=== PATIENT | male | born 1970 | race Caucasian/White ===

== ENCOUNTER 2018-08-28 15:52 | Observation (INO) ==
[~2018-08-28 15:52] MED LIST: ATIVAN IV ONE; ATIVAN ONE; KEPPRA 1,000 MG in NS 100 ML IV ONE
[2018-08-28 16:31] LABS: BILIRUBIN URINE NEGATIVE (NEGATIVE); BLOOD URINE 3+ (NEGATIVE); CLARITY CLEAR (CLEAR); COLOR YELLOW; GLUCOSE URINE NEGATIVE (NEGATIVE); KETONE URINE TRACE mg/dL (NEGATIVE); LEUKOCYTES URINE NEGATIVE (NEGATIVE); NITRITE URINE NEGATIVE (NEGATIVE); PROTEIN URINE NEGATIVE (NEGATIVE); SP GRAVITY URINE 1.015; UROBILINOGEN URINE NORMAL
--- NOTE | 2018-08-28 16:44 | Diag Imaging Result Doc PS360 ---
EXAM: CT HEAD W/O CONTRAST 08/28/2018 HISTORY: seizures TECHNIQUE: This exam was performed using automated exposure control, adjustment of mA or kV according to patient size, and/or use of iterative reconstruction technique. COMMENT: There has been previous left temporal craniotomy. There is considerable encephalomalacia in the left frontal and temporal lobe. There is an apparent aneurysm clip lateral to the sella on the left. Compared to the previous examination of 03/30/2018 there is somewhat less extensive encephalomalacia in the posterior parietal lobe on the left. There is a shunt catheter in the posterior frontal bone on the right extending into the area of the foramen of Olga. There is no increase in the degree of hydrocephalus to indicate shunt malfunction. There is no evidence of intracranial bleed. There is some motion artifact. The visualized paranasal sinuses are clear. IMPRESSION: Postsurgical changes. No evidence of acute disease. Electronically signed by Valentin Vu 08/28/2018 4:41 PM
[2018-08-28 16:53] LABS: HEMATOCRIT 45.1 % (42.0-52.0); RBC 4.92 XMIL (4.7-6.1); WBC 11.56 X1000 (4.8-10.8)
[2018-08-28 16:54] LABS: BASO# 0.05 X1000 (0.0-0.2); BASO% 0.4 % (0.0-0.8); EOS% 1.7 % (0.0-10.0); IMM GRAN# 0.03 X1000 (0.0-0.04); IMM GRAN% 0.3 % (0.0-0.5); LYMPH# 3.58 X1000 (1.2-3.4); MCH 30.5 PG (27-31); MCHC 33.3 g/dL (33-37); MCV 91.7 FL (81-99); MONO# 0.72 X1000 (0.11-0.59); MONO% 6.2 % (1.7-9.3); MPV 10.3 FL (7.4-10.4); NEUT# 6.98 X1000 (1.4-6.5); NEUT% 60.4 % (42.2-75.2); PLT 323 X1000 (130-400)
[2018-08-28 16:59] LABS: URINE BACTERIA NEGATIVE /HFP; URINE EPITHELIAL CELLS <10 /HPF (<10); URINE RBC TNTC /HPF (<10); URINE SOURCE CLEAN CATCH; URINE WBC <10 /HPF (<10)
[2018-08-28 17:31] LABS: AGAP 23; ALBUMIN 4.7 g/dL (3.5-5.0); ALKALINE PHOSPHATASE 68 U/L (32-122); BUN 11 mg/dL (8-22); CALCIUM 9.3 mg/dL (8.8-10.2); CHLORIDE 99 mmol/L (98-107); COSMO 275; CREATININE 0.9 mg/dL (0.7-1.2); ESTIMATED GFR > 60; GLUCOSE 95 mg/dL (70-104); GOT 23 U/L (10-34); GPT 42 U/L (10-44); POTASSIUM 4.8 mmol/L (3.5-5.1); SODIUM 138 mmol/L (136-145); TCO2 16 mmol/L (25-35); TOTAL PROTEIN 7.5 g/dL (6.3-8.3)
--- NOTE | 2018-08-28 17:40 | EKG Report ---
Test Performed on : 08/28/2018 4:23:09 PM Test Reason : seizure Blood Pressure : / mmHG Vent. Rate : 120 BPM Atrial Rate : 120 BPM P-R Int : 176 ms QRS Dur : 090 ms QT Int : 308 ms P-R-T Axes : 054 051 028 degrees QTc Int : 435 ms Sinus tachycardia. Cannot rule out Anterior infarct , age undetermined Abnormal ECG When compared with ECG of 30-MAR-2018 23:45, No significant change was found Unconfirmed Result
--- NOTE | 2018-08-28 17:45 | PROVIDER DOCUMENTATION ---
This chart was entered by Magui Khoury Scribe, acting as scribe for Cody Umaña MD. HPI-Neurological Disorder - General Chief Complaint: Seizure Stated Complaint: Seizure Time Seen by Provider: 08/28/18 15:36 Source: family, EMS Unable to obtain history due to:: altered Allergies/Adverse Reactions: Patient Allergies Allergy/AdvReac Type Severity Reaction Status Date / Time No Known Allergies Allergy Verified 08/28/18 16:28 Home Medications: Home Medication List Medication Instructions Recorded Confirmed Last Taken Type Allopurinol [Zyloprim] 1 tab PO DAILY 03/30/18 03/30/18 03/30/18 History Aspirin 1 tab PO DAILY 03/30/18 03/30/18 03/30/18 History Calcium Carb/D3/Magnesium/Zinc 1 tab PO DAILY 03/30/18 03/30/18 03/30/18 History [Eric Mag Zinc-D Tablet] Fluoxetine HCl 2 cap PO DAILY 03/30/18 03/30/18 03/30/18 History Hydrochlorothiazide 1 tab PO DAILY 03/30/18 03/30/18 03/30/18 History Lansoprazole 1 tab PO Q48H 03/30/18 03/30/18 Unknown History Losartan Potassium 1 tab PO DAILY 03/30/18 03/30/18 03/30/18 History Trazodone HCl 1 tab PO DAILY 03/30/18 03/30/18 03/30/18 History Lacosamide [Vimpat] 100 mg PO BID #60 tab 04/02/18 Unknown Rx Patient's Own Med 1 each PO QAM misc 04/02/18 Unknown Rx Patient's Own Med 2 each PO QPM [facility] 04/02/18 Unknown Rx Potassium Citrate E.r. [Urocit-K] 30 meq PO DAILY tablet 04/02/18 Unknown Rx - History of Present Illness-Neuro Nature of Presenting Problem: 47 y/o male presents to ED with seizures onset approximately 1 hour prior to arrival. EMS reports they gave 2 of versed en route to ED. Mother of pt is present at bedside and states he has epilepsy. Mother reports he has seized like this before and had to be given a combination of kepra and ativan. Pt is actively seizing in room. Severity: reports: moderate Onset/Duration: reports: 1 hour ago Timing: reports: still present Context: reports: seizure activity Character of Altered Mental Status: reports: seizure activity Any recent trauma/injury?: reports: none New weakness or altered sensation location:: reports: none Cognitive Baseline: other (actively seizing) Gait Baseline: walks without assistance Associated Symptoms: reports: seizures, other (incontinent of urine) Similar Symptoms Previously?: Yes Recently seen or treated by another doctor?: No - Seizure First time to have a seizure?: No Witnessed seizure?: Yes (mother ) Approximate time seizures began?: 14:42 Episode Frequency: frequent episodes (epileptic) Status Epilepticus: Yes Preceding symptoms/context:: none Character of Seizure: reports: generalized shaking all over, incontinent of urine Post-ictal Symptoms: reports: confusion Seizure related injury: none Review of Systems - Adult - REVIEW OF SYSTEMS - ADULT ROS:: unobtainable per condition (active seizing) Constitutional: reports: no symptoms reported, see HPI Eyes: reports: no symptoms reported, see HPI Ears, Nose, Mouth & Throat: reports: no symptoms reported, see HPI Cardiovascular: reports: no symptoms reported, see HPI Respiratory: reports: no symptoms reported, see HPI Gastrointestinal: reports: no symptoms reported, see HPI Genitourinary: reports: no symptoms reported, see HPI Musculoskeletal: reports: no symptoms reported, see HPI Integumentary: reports: no symptoms reported, see HPI Neurological: reports: see HPI, seizure Psychiatric: reports: no symptoms reported, see HPI Endocrine: reports: no symptoms reported, see HPI Hematologic/Lymphatic: reports: no symptoms reported, see HPI Allergic/Immunologic: reports: no symptoms reported, see HPI All Other Systems: Reviewed and Negative Past History - Adult - PAST MEDICAL HISTORY-ADULT Review of Records: reports: Old Records Reviewed, Nursing Assessment Review, Medications Reviewed, Social history reviewed & non-contributory. Major Childhood Illnesses: reports: denies history Cardiovascular: reports: denies history Respiratory: reports: denies history Gastrointestinal: reports: denies history Obstetrical/Gynecological: reports: denies history Genitourinary: reports: denies history Musculoskeletal: reports: denies history Neurological: reports: cancer/tumor (brain tumor), CVA, Seizures/Epilepsy, other (aneurysm) Endocrine/Immune: reports: denies history Other Conditions: reports: denies history - PRIOR SURGERIES/PROCEDURES Surgical/Procedure History: reports: reviewed, not pertinent, other (aneurysm; eye sx) - IMMUNIZATION STATUS Childhood Immunizations: See Nurse Assessment Flu Vaccine: See Nurse Assessment - FAMILY HISTORY Family History: reviewed, not pertinent - SOCIAL HISTORY Smoking: non-smoker Substance Use: none/never Alcohol Use Frequency: never Living Situation: family Physical Exam- Neurological - Physical Exam-Neuro Initial Vital Signs Reviewed: Yes General Appearance: other (actively seizing) Head Injury: no evidence of injury Respiratory: chest non-tender, lungs clear, normal breath sounds Cardiovascular: normal peripheral pulses, regular rate, rhythm, no edema, no gallop, no JVD, no murmur, tachycardia Abdominal Exam: normal bowel sounds, non tender, soft 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 Exam: other (actively seizing) Coordination/Gait: other (actively seizing) Motor/Sensory: other (actively seizing) Neurologic: other (actively seizing) Integumentary: normal color, warm/dry Psych/Mental Status: other (actively seizing) Progress - PLAN OF CARE/RESULTS Progress/Plan/Lab Results: Vital Signs - 8 hr 08/28/18 15:31 08/28/18 15:49 08/28/18 16:00 Pulse Rate 145 H 148 H 127 H Respiratory Rate 40 H 44 H 30 H Blood Pressure 161/93 162/93 144/89 O2 Sat by Pulse Oximetry 93 L 99 98 08/28/18 16:13 Pulse Rate 123 H Respiratory Rate 29 H Blood Pressure 149/92 O2 Sat by Pulse Oximetry 99 Laboratory Results - last 24 hr 08/28/18 08/28/18 08/28/18 15:15 15:15 15:15 WBC 11.56 H RBC 4.92 Hgb 15.0 Hct 45.1 MCV 91.7 MCH 30.5 MCHC 33.3 RDW Std Deviation 13.0 Plt Count 323 MPV 10.3 Immature Gran % (Auto) 0.3 Neut % (Auto) 60.4 Lymph % (Auto) 31.0 Swain % (Auto) 6.2 Eos % (Auto) 1.7 Baso % (Auto) 0.4 Immature Gran # (Auto) 0.03 Neut # (Auto) 6.98 H Lymph # (Auto) 3.58 H Swain # (Auto) 0.72 H Eos # (Auto) 0.20 Baso # (Auto) 0.05 Sodium 138 Potassium 4.8 Chloride 99 Carbon Dioxide 16 L Anion Gap 23 BUN 11 Creatinine 0.9 Estimated GFR/1.73 m2 > 60 BUN/Creatinine Ratio 12 Glucose 95 Calculated Osmolality 275 Calcium 9.3 Total Bilirubin 0.20 AST 23 ALT 42 Alkaline Phosphatase 68 Total Protein 7.5 Albumin 4.7 Globulin 3.0 Albumin/Globulin Ratio 2.0 Urine Source CLEAN CATCH Urine Color YELLOW Urine Clarity CLEAR Urine pH 5.0 Ur Specific [place] 1.015 Urine Protein NEGATIVE Urine Ketones TRACE Urine Blood 3+ A Urine Nitrite NEGATIVE Urine Bilirubin NEGATIVE Urine Urobilinogen NORMAL Urine Microscopic RBC TNTC A Urine WBC NEGATIVE Urine Microscopic WBC <10 Ur Epithelial Cells <10 Urine Bacteria NEGATIVE Urine Glucose NEGATIVE Orders Category Date Time Status Cardiac Monitoring DIRECTED Care 08/28/18 15:34 Active FSBS [Finger Stick Blood Sugar (ED)] DIRECTED Care 08/28/18 16:13 Active Calhoun Cath Insertion ORDERED Care 08/28/18 15:50 Active Nursing- Obtain EKG ONCE Care 08/28/18 16:13 Active Oxygen Therapy- ED Nursing DIRECTED Care 08/28/18 15:34 Active Saline Loc NOW Care 08/28/18 15:[address] HEAD W/O CONTRAST [CT] Stat Exams 08/28/18 16:13 Completed CBC WITH ELECTRONIC DIFF [HEME] Stat Lab 08/28/18 15:15 Completed COMPREHENSIVE METABOLIC PANEL [CHEM] Stat Lab 08/28/18 15:[address] W/POSS RFLX CULT [URINALYSIS] Stat Lab 08/28/18 15:15 Completed Levetiracetam [Keppra] 1,000 mg Med 08/28/18 15:41 Discontinued 0.9% Sodium Chloride Inj [Ns] 100 ml IV NOW Lorazepam [Ativan] Med 08/28/18 15:45 Discontinued 1 mg IV NOW ONE Lorazepam [Ativan] Med 08/28/18 15:33 Discontinued 2 mg IV NOW ONE EKG [EKG] Stat Ther 08/28/18 16:13 Draft Result Diagrams: 08/28/18 15:15 08/28/18 15:15 - REASSESSMENT Reassessment #1 Time Reassessed: 16:17 Status: improving (Pt seizures have subsided and he is now alert and talking.) - EKG 1 Time of EKG reading by physician:: 16:23 EKG Read and Signed by:: Cody Umaña EKG Interpretation (*Must complete 3 of following elements*): Abnormal Rate: 120 Rhythm: Sinus tach [place]: normal QRS: other (cannot rule out anterior infarct) MT Interval: normal ST Wave: normal - CT/MRI 1 CT Study: Head Impression: See EMR Report ([facility] [address], [address], [place] [address] Department of Imaging Patient: RANDELL LIMAADM Date: 08/28/18#: [id number] : 1970ADM Status: PRE ERAcct#: [id number] Age/Sex: 47/MRoom/Bed: Loc: P.ED Ordering Physician: Cody Umaña MD Family Physician: Reason for Procedure: seizures Signed EXAM: CT HEAD W/O CONTRAST 08/28/2018 HISTORY: seizures TECHNIQUE: This exam was performed using automated exposure control, adjustment of mA or kV according to patient size, and/or use of iterative reconstruction technique. COMMENT: There has been previous left temporal craniotomy. There is considerable encephalomalacia in the left frontal and temporal lobe. There is an apparent aneurysm clip lateral to the sella on the left. Compared to the previous examination of 03/30/2018 there is somewhat less extensive encephalomalacia in the posterior parietal lobe on the left. There is a shunt catheter in the poste rior frontal bone on the right extending into the area of the foramen of Olga. There is no increase in the degree of hydrocephalus to indicate shunt malfunction. There is no evidence of intracranial bleed. There is some motion artifact. The visualized paranasal sinuses are clear. IMPRESSION: Postsurgical changes. No evidence of acute disease. Electronically signed by Valentin Vu 08/28/2018 4:41 PM 08/28/18 1641 Interpreting Physician: Valentin Vu MD Dictated Date/Time: 08/28/18 1907 cc: Cody Umaña MD;) - CONSULTS/PCP/HOSPITALIST Notification #1 *Consult/PCP/Hospitalist*: Dr. Avilez Time Discussed: 17:37 Reason/Comments: Seizures Consult Disposition: Will see in ED, Admit Departure - Departure Date of Disposition Decision: 08/28/18 Time of Disposition Decision: 17:37 DIAGNOSIS: Seizure disorder, grand mal Disposition: ADMITTED INPATIENT 09 Certified Medical Emergency: Emergent Condition: Stable Referrals and Follow-Ups: None,PCP [Primary Care Provider] - - Critical Care Note This patient required my direct & personal management of CC.: No Attestation - Physician/ NOLVIA Attestation Patient care was provided by Advanced Practice Provider:: No The physician spent face to face time with patient:: Yes Advanced Practice Provider documentation review:: Supervising physician onsite and consulted in the evaluation and care of this patient. The physician did have a face to face encounter with the patient. This chart was documented by the indicated scribe, (Magui Khoury Scribe) and accurately reflects the services I performed and decisions made by me, Cody Umaña MD, as attested by the provider's signature.
[2018-08-28] MEDS ORDERED: ZOFRAN IV PRN (18:36)
--- NOTE | 2018-08-28 20:00 | HISTORY AND PHYSICAL ---
PRIMARY CARE PHYSICIAN: Dr. Thierry Gee. CHIEF COMPLAINT: Seizure. HISTORY OF PRESENT ILLNESS: Mr. Porter is a 47-year-old gentleman with a past medical history of seizures, hemorrhagic stroke, aneurysm, and brain tumor. He is status post radiation with a history of 4 craniotomies and ventriculoperitoneal shunt placement. The patient's aunt is in with the patient and she helps with the history. The aunt stated that the patient had a seizure earlier today that they time the and at about 7 minutes. They called 911. She stated that during this time he had tonic colonic movements. He did relax somewhat, although, when it became a little bit stronger she decided to call 911 as he has had a status epilepticus in the past. EMS gave 2 mg of Versed EN route to the emergency room. On arrival to the emergency room, the patient was actively seizing. He received a total of 3 mg of Ativan. The seizures resolved. At the time of my exam he is awake. He is alert. He is at his normal baseline according to his aunt. PAST MEDICAL HISTORY: 1. Hypertension. 2. Obstructive sleep apnea. 3. History of brain tumor at the age of 89 years old, status post XRT and craniotomy. 4. History of hemorrhagic stroke with subsequent aneurysms. He does have a aneurysm clip. 5. Seizure disorder. 6. History of kidney stones. PAST SURGICAL HISTORY: 1. Craniotomy x4. 2. Placement of ventriculoperitoneal shunt catheter. 3. Aneurysmal clip placement as well as aneurysm coil placement. 4. Tonsillectomy. 5. Total of 3 eye surgeries for muscle and eyelid repair. SOCIAL HISTORY: He is normally able to ambulate without assistance. He lives with his mother who helps care for him. There is no known alcohol, drug or tobacco use. ALLERGIES: No known drug allergies. HOME MEDICATIONS: A list will be obtained by the nursing staff and once verified, we will review and restart as appropriate. REVIEW OF SYSTEMS: Obtained from the patient and aunt. The patient denied any syncope, dizziness, chest pain, palpitations, shortness of breath, cough, fever, chills, any night sweats, any nausea, vomiting, diarrhea, constipation, black or bloody vomitus or stools, any gross hematuria, dysuria, frequency, or urgency. PHYSICAL EXAMINATION: GENERAL: This is a 47-year-old gentleman who is lying on the stretcher in the emergency room in no distress. VITAL SIGNS: Blood pressure is 143/90 with a heart rate of 99, respirations are 20, temperature has 98 with O2 saturations 94 to 97% on 2 L nasal cannula. EYES: Pupils are equal, round, react to light. EOMs are intact. Sclerae anicteric. HEENT: Head is normocephalic, atraumatic. Mucous membranes are moist. NECK: Supple with trachea midline. CARDIOVASCULAR: Regular rate and rhythm. S1, S2 appreciated. No murmur. PULMONARY: Breath sounds are clear with no increased work of breathing noted. Chest rises and falls symmetric with respiration gastrointestinal is soft, nontender, nondistended with bowel sounds in all 4 quadrants. SKIN: Warm and dry. NEUROLOGIC: He is alert and he is oriented to person and family members. He does move all extremities at random and on command. LABS: WBC is 11.5 with hemoglobin 15, hematocrit 45.1 and platelets 323,000. Sodium 138, potassium 4.8, BUN 11, creatinine 0.9 with a glucose of 95. Urinalysis reveals 3+ blood, too numerous to count red blood cells. ASSESSMENT AND PLAN: 1. Seizure. 2. Hypertension. 3. Possible urinary tract infection. 4. Leukocytosis. 5. Obstructive sleep apnea. 6. History of extensive prior neurosurgical history as stated above. He is followed at [facility]. PLAN: The patient will be admitted, placed on telemetry with neuro checks q.6 hours as well as seizure precautions. We will continue his Aptiom and Vimpat at his home doses. We will consult Dr. Rodríguez. Recheck CBC and CMP in the morning. We will follow urine culture and antibiotics will be culture driven. For deep vein thrombosis prophylaxis we will use sequential compression devices. For gastrointestinal prophylaxis use Prilosec. Further treatments pending hospital course. Thank you. Dictated by TAYLER Boyd for Efrain Avilez MD cc: TAYLER Boyd MD [facility]
[2018-08-28] MEDS ORDERED: PATIENT'S OWN MED PO SCH (22:15)
[2018-08-28] MEDS: VIMPAT PO SCH (22:23)
[2018-08-29 05:56] LABS: BASO# 0.03 X1000 (0.0-0.2); BASO% 0.3 % (0.0-0.8); EOS# 0.13 X1000 (0.0-0.7); EOS% 1.3 % (0.0-10.0); HEMATOCRIT 43.4 % (42.0-52.0); HEMOGLOBIN 14.6 g/dL (14.0-18.0); IMM GRAN# 0.02 X1000 (0.0-0.04); IMM GRAN% 0.2 % (0.0-0.5); LYMPH% 18.4 % (20.5-51.1); MCH 30.4 PG (27-31); MCHC 33.6 g/dL (33-37); MCV 90.4 FL (81-99); MONO# 1.16 X1000 (0.11-0.59); MONO% 11.3 % (1.7-9.3); MPV 10.3 FL (7.4-10.4); NEUT# 7.06 X1000 (1.4-6.5); NEUT% 68.5 % (42.2-75.2); PLT 292 X1000 (130-400); RDW 13.1 % (11.5-14.5)
[2018-08-29 06:32] LABS: AGAP 13; ALBUMIN 4.3 g/dL (3.5-5.0); ALKALINE PHOSPHATASE 62 U/L (32-122); BUN 13 mg/dL (8-22); CHLORIDE 105 mmol/L (98-107); COSMO 287; CREATININE 0.8 mg/dL (0.7-1.2); ESTIMATED GFR > 60; GLUCOSE 96 mg/dL (70-104); GOT 36 U/L (10-34); GPT 41 U/L (10-44); POTASSIUM 3.8 mmol/L (3.5-5.1); SODIUM 144 mmol/L (136-145); TCO2 26 mmol/L (25-35); TOTAL PROTEIN 6.9 g/dL (6.3-8.3)
[2018-08-29] MEDS ORDERED: PATIENT'S OWN MED PO SCH (09:00)
[2018-08-29] MEDS: VIMPAT PO SCH (10:24)
[2018-08-29 14:00] VITALS: BP 139/89
--- NOTE | 2018-08-29 19:21 | CONSULTATION ---
DATE OF CONSULTATION: 08/29/2018 HISTORY OF PRESENT ILLNESS: Mr. Porter is 47 years old, and he has a long- standing seizure disorder attributed to prior brain injury. gives very concise history. Yesterday, he had generalized seizure lasting 7 minutes and that began to resolve. Soon, he had further seizure activity and EMS was called. By report, he received Versed, then lorazepam a few doses after arrival at the ER. Levetiracetam 1000 mg IV was ordered and I think he received that. Seizure activity stopped and he has been steadily improving over the last 18-20 hours. reports his baseline dysphasia is usually a little bit more prominent after seizure and that has occurred this time. His right hemiparesis usually continues at baseline after seizure. Last prior seizure was just over [address] Horton saw him for inpatient consultation then. Vimpat dose was increased then. He had not tolerated oral levetiracetam. He has been managed with Aptiom 400 mg a.m./800 mg p.m. daily for the last few years, according to , and Vimpat dose has been increased in recent months to 200 mg b.i.d. His seizures in recent years have been mostly mid-afternoon onset. He had not missed any medication doses prior to recent episode. He had not had fever. He might have missed some sleep, which family attributes to being worried about his mother's recent surgery. He had not been febrile. He had not made any other medication changes. PHYSICAL EXAMINATION: On exam, he is awake, alert, attentive. He seems appropriate. He followed simple commands. He had trouble finding words interrupting his fluent speech. He counted fingers consistently in the left field and very inconsistently on the right. He has good power in the left arm. He can raise the right arm at the shoulder. 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 Proprioception is good at the right 2nd finger MCP joint. reports facial appearance is at baseline. 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 CT shows old left frontotemporal encephalomalacia and aneurysm clip with stable ventricular size. I do not think we need to do anything urgently. If seizures are mid-afternoon onset, the Aptiom dose might be adjusted to try to improve the mid afternoon levels. Vimpat dose might be increased cautiously. A different 3rd drug might be considered. We discussed some of these options and since he is stable and nearing baseline, I think we can wait and let him follow up with his epileptologist at [facility]. plans to phone that clinic today and to keep appointment in a few weeks. If he has more trouble before then, I will be glad to see him again. Thanks for asking Neurology to see Mr. Porter. cc: MD ANN-MARIE Costa III
--- NOTE | 2018-08-29 23:25 | HISTORY AND PHYSICAL ---
ADDENDUM: Patient seen and examined by myself while he is in the ER. Full note dictated and discussed with nurse practitioner. Patient is starting to wake up from his seizure although given his history and proclivity of having prolonged seizures after which time he is prolong postictal we will admit him to the hospital for observation and adjust medications as needed. cc: Efrain Avilez MD MTDD
--- NOTE | 2018-08-30 14:29 | DISCHARGE SUMMARY ---
ADMISSION DATE: 08/28/2018 DISCHARGE DATE: 08/29/2018 PRIMARY CARE PHYSICIAN: Dr. Thierry Gee. DIAGNOSES: 1. Seizure. 2. Hypertension. 3. History of brain tumor at age 11, status post XRT and craniotomy. 4. History of hemorrhagic stroke with subsequent aneurysms, status post aneurysm clip and coil. DIAGNOSTICS: 1. CT of the head revealed postsurgical changes. No evidence of acute disease. There has been a left temporal craniotomy. There is considerable encephalomalacia in the front and temporal left lobes. There is an apparent aneurysm clip lateral to the sella on the left. There is a shunt catheter in the posterior frontal bone on the right, extending into the area of the foramen of Monro. There is no increase in the degree of hydrocephalus to indicate shunt malfunction. There is no evidence of intracranial bleed. There is some motion artifact. The visualized paranasal sinuses are clear. 2. Urine culture revealed no growth. HOSPITAL COURSE: Mr. Porter presented to the emergency room after having a prolonged seizure. He required 2 mg of Versed enroute per EMS and 3 mg of Ativan on arrival to ER. Seizures ended. They did not recur. Today he is awake, he is alert, he is oriented. He feels very well. He has been up walking with no complaints. Family members state he is at his baseline. The patient did have a Calhoun catheter. This was discontinued. He voided twice, 200 mL at one time, 240 the other. He feels like he is emptying. The patient is followed by a neurologist in [place]. We continued his Vimpat and Aptiom doses as prehospitalization. He was evaluated by Dr. Rodríguez, who felt that he was safe to be discharged today and they were encouraged by myself as well as Dr. Rodríguez to update his neurologist at [facility] Saturday of these events and the hospitalization. DISCHARGE VITAL SIGNS: Blood pressure is 139/89 with a heart rate of 75, respirations 16, temperature 98.3 degrees oral with room air saturation 95%. DISCHARGE PHYSICAL EXAMINATION: Cardiovascular: Regular rate and rhythm. S1 and S2 appreciated. He has no murmur. Calves are nontender bilateral with peripheral pulses palpable x4 extremities. Pulmonary: Breath sounds are clear with no increased work of breathing noted. Chest rises and falls, symmetric respirations. Chest wall is nontender to palpation. Gastrointestinal: Abdomen is soft, nontender, nondistended with bowel sounds in all 4 quadrants. Genitourinary: No CVA nor suprapubic tenderness. Neurologic: He is alert, he is oriented. He has 5/5 muscle strength on the left, 3/5 on the right upper and lower extremities which is chronic. DISCHARGE MEDICATIONS: 1. Allopurinol 300 mg p.o. at bedtime. 2. Vimpat 200 mg p.o. b.i.d. 3. Urocit-K 10 mEq p.o. b.i.d. 4. Losartan 50 mg p.o. daily. 5. Lansoprazole 30 mg p.o. daily. 6. Hydrochlorothiazide 25 p.o. daily. 7. Fluoxetine 80 mg daily. 8. Aspirin 325 p.o. at bedtime. 9. Aptiom 400 mg p.o. daily. 10. Aptiom 800 mg p.o. at bedtime. 11. Trazodone 50 mg p.o. at bedtime. FOLLOWUP: 1. Dr. Thierry Gee. He needs to call Saturday and update on events and schedule an appointment. 2. His neurologist in [facility]. He needs to call Saturday to update on events and schedule up as they recommend. 3. His urologist. He needs to call and check in with Saturday and follow up they recommend. 4. The patient was given a CD with his CT of the head on this to take with him to his next neurology appointment. DISCHARGE DISPOSITION: He is being discharged home in stable condition with his aunt. TIME SPENT: This is a greater than 30 minute discharge. Dictated by TAYLER Boyd for Efrain Avilez MD cc: TAYLER Boyd MD M. Neel Roberts, MD [facility] HEALTHDamaris
--- NOTE | 2018-08-30 15:34 | DISCHARGE SUMMARY ---
ADMISSION DATE: 08/28/2018 DISCHARGE DATE: 08/29/2018 ADDENDUM: Patient seen and examined by myself. Full note dictated and discussed with nurse practitioner. On discharge, patient is awake, alert. He overall is stating that he is feeling better and feeling essentially back to his baseline. Therefore, he will be discharged home. He will follow up outpatient with treatment facility of choice. Please see full note. cc: Efrain Avilez MD
== END 2018-08-29 14:20 | disposition home or self-care (01) ==
LOC: P.ED 15:52 → INTOOBSV 15:53 → P.MEDSURG 15:53
PROVIDERS: ATTEND Family Medicine

== ENCOUNTER 2019-03-13 16:22 | Inpatient (IN) ==
[2019-03-13] MEDS ORDERED: ATIVAN ONE ×3 (16:41→16:45)
[2019-03-13] MEDS ORDERED: QUELICIN ONE (16:44)
[2019-03-13] MEDS: DIPRIVAN 1% 1,000 MG/100 ML BOTTLE IV SCH ×3 (16:55→23:09)
[2019-03-13 16:56] LABS: BASO# 0.07 X1000 (0.0-0.2); BASO% 0.6 % (0.0-0.8); EOS# 0.04 X1000 (0.0-0.7); EOS% 0.3 % (0.0-10.0); HEMATOCRIT 48.4 % (42.0-52.0); HEMOGLOBIN 15.8 g/dL (14.0-18.0); IMM GRAN# 0.03 X1000 (0.0-0.04); IMM GRAN% 0.2 % (0.0-0.5); LYMPH# 4.25 X1000 (1.2-3.4); LYMPH% 34.5 % (20.5-51.1); MCH 29.8 PG (27-31); MCHC 32.6 g/dL (33-37); MCV 91.3 FL (81-99); MONO# 0.56 X1000 (0.11-0.59); MONO% 4.5 % (1.7-9.3); MPV 10.2 FL (7.4-10.4); NEUT# 7.37 X1000 (1.4-6.5); NEUT% 59.9 % (42.2-75.2); PLT 426 X1000 (130-400); RDW 12.9 % (11.5-14.5); WBC 12.32 X1000 (4.8-10.8)
[2019-03-13] MEDS ORDERED: DIPRIVAN 1% 1,000 MG/100 ML BOTTLE ONE ×2 (16:57→20:16)
[2019-03-13] MEDS ORDERED: ATIVAN IV ONE ×9 (16:58→17:11)
[2019-03-13] MEDS ORDERED: KEPPRA 1,500 MG in NS 100 ML IV ONE (17:01)
[2019-03-13] MEDS ORDERED: KEPPRA 2,000 MG in NS 100 ML IV ONE (17:03)
[2019-03-13] MEDS ORDERED: DIPRIVAN 1% IV ONE (17:14)
[2019-03-13] MEDS ORDERED: QUELICIN IV ONE (17:14)
[2019-03-13 17:20] LABS: ESTIMATED GFR > 60
[2019-03-13 17:22] LABS: AGAP 30; ALB/GLOB RATIO 1.6; ALBUMIN 4.9 g/dL (3.5-5.0); ALKALINE PHOSPHATASE 69 U/L (32-122); BUN 10 mg/dL (8-22); CHLORIDE 93 mmol/L (98-107); COSMO 272; GLUCOSE 115 mg/dL (70-104); GOT 25 U/L (10-34); GPT 46 U/L (10-44); MAGNESIUM 2.3 mg/dL (1.5-2.7); PHENYTOIN < 0.80 ug/mL (10-20); POTASSIUM 3.7 mmol/L (3.5-5.1); SODIUM 136 mmol/L (136-145); TCO2 13 mmol/L (25-35); TOTAL BILIRUBIN 0.22 mg/dL (0.20-1.00); VALPROIC ACID < 2.80 ug/mL (50-100)
--- NOTE | 2019-03-13 17:30 | Diag Imaging Result Doc PS360 ---
EXAM: CHEST/ABD TUBE PLACEMENT HISTORY: et tube/ng tube TECHNIQUE: Chest abdomen single view COMPARISON: 04/01/2018 FINDINGS: Endotracheal tube in good position with tip located 3 cm above the khang. There is a nasogastric tube overlying the esophagus and stomach. Right-sided catheter is unchanged. The lungs are poorly expanded. No consolidation. No pleural effusions identified. IMPRESSION: Endotracheal and nasogastric tubes in good position Electronically signed by Brian Butcher 03/13/2019 5:28 PM
[2019-03-13] MEDS ORDERED: KEPPRA 500 MG in NS 100 ML IV ONE (18:00)
--- NOTE | 2019-03-13 18:17 | Diag Imaging Result Doc PS360 ---
EXAM : CT HEAD/C-SPINE W/O CONTRAST HISTORY: ams TECHNIQUE: 1. CT head without intravenous contrast 2. CT cervical spine without intravenous contrast COMPARISON: Brain compared to 08/28/2018 FINDINGS: Head: There are postsurgical changes on the left with encephalomalacia in the frontal, parietal, anterior temporal, and occipital lobes. The appearance is similar to the prior exam. There are aneurysm clips and a shunt catheter. No significant ventricular enlargement. No parenchymal hemorrhage. No extra-axial acute hemorrhage. Small chronic extra-axial collections. Small air-fluid level in the left maxillary sinus with mucosal thickening. Cervical spine: There is good alignment to the cervical spine. No precervical soft tissue swelling. No subluxation. No fracture. IMPRESSION: Head: Postsurgical changes. No acute injury. Cervical spine: No acute fracture. This exam was performed using automated exposure control, adjustment of mA or kV according to patient size, and/or use of iterative reconstruction technique. Electronically signed by Brian Butcher 03/13/2019 6:14 PM
--- NOTE | 2019-03-13 19:31 | HISTORY AND PHYSICAL ---
CHIEF COMPLAINT: Recurrent grand mal seizures. HISTORY OF PRESENT ILLNESS: Mr. Michael Genao is a 48-year-old gentleman who is well known to me. 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 He was at [facility] with his mother this afternoon when he developed persistent generalized tonic colonic seizures without seizing. He was in status epilepticus. He was transported via ambulance to [facility] where he was intubated to protect his airway and was given a total large doses of Ativan and loaded with IV Keppra with resolution of his seizures. His seizure activity lasted at least 45 minutes. His last seizure was in August of last year. His neurologist in [place] has made various changes in his medicines over the past several months. He is on Aptiom 400 mg 2 tablets b.i.d., Vimpat 200 mg b.i.d. and recently added Neurontin 300 mg t.i.d. An x-ray of the CT showed postsurgical changes on the left with encephalomalacia in the frontal parietal, anterior temporal and occipital lobes. There were aneurysm clips and a shunt catheter. No hemorrhage was noted. There was good alignment to the cervical spine. PAST MEDICAL HISTORY: Hypertension, depression, generalized tonic colonic seizures, previous hemorrhagic stroke complicated by chronic aphasia, gastroesophageal reflux disease. PAST SURGICAL HISTORY: Placement of a ventriculoperitoneal shunt catheter, repair of intracranial aneurysm, tonsillectomy, craniotomy. ALLERGIES: No known drug allergies. FAMILY HISTORY: His mother has Meniere disease, breast cancer status post mastectomy. His father had known ischemic heart disease, mixed hyperlipidemia and essential hypertension. SOCIAL HISTORY: He denies the use of tobacco, alcohol, or illicit drugs. He lives at home with his mother. MEDICATIONS: Aspirin 325 mg daily, Aptiom 400 mg 2 tablets b.i.d., fluoxetine 80 mg daily, hydrochlorothiazide 25 mg daily, Vimpat 50 mg b.i.d., Neurontin 300 mg t.i.d., Prevacid 30 mg daily, losartan 50 mg daily, trazodone 50 mg at bedtime p.r.n. insomnia. REVIEW OF SYSTEMS: He denies any recent weight gain or weight loss.HEENT: Wears glasses. CV: No chest pain, palpitations, or anginal equivalents. Pulmonary: No shortness of breath, PND, orthopnea. GI: No reflux, dysphagia, melena, hematochezia, change in bowel habits or rectal bleeding. Endocrine: No polyuria, no polydipsia. No cold or heat intolerance. Skin: No easy bruisability. : No leakage of urine with coughing or laughing. Neuro: Recurrent seizures. This is an acutely ill-appearing 47-year-old gentleman who is sedated with propofol. Breathing appears nonlabored on the ventilator. Temperature 97.7 degrees, pulse 75, respirations 18, BP 130/85. HEENT: Pupils are equal and reactive. Neck: Supple. No masses, JVD or bruits. CV: Regular rate and rhythm. Lungs: Clear. Abdomen: Soft, nontender with active bowel sounds. No hepatosplenomegaly. No abdominal bruits. Extremities: Without edema. and rectal: Deferred. Neurologic: He does not arouse to verbal or noxious stimuli. I do not see any spontaneous movements of his upper or lower extremities. ASSESSMENT AND PLAN: 1. Status epilepticus. He has a very complicated neurologic history. He has had excision of a midline astrocytoma, repair of an aneurysm and a hemorrhagic stroke. He has been loaded with Keppra to stop the seizure activity. He has not been able to tolerate oral Keppra at home due to significant nausea and vomiting. We will initiate seizure precautions and perform frequent neuro checks. We will continue Aptiom 400 mg 2 tablets b.i.d., gabapentin 300 mg t.i.d. and Vimpat 200 mg b.i.d. per NG tube. In the event of any recurrent seizure activity we would load him with intravenous Keppra as well as Ativan. He was intubated in the emergency room for protection of his airway. Once he is still postictal, I hope that as he regains consciousness that we can wean him quickly off the ventilator. I have asked Dr. Skinner to see him in consultation in order to manage the ventilator. We have also consulted Dr. Burciaga for placement of a central line for more secure IV access. I have discussed the potential side effects of bleeding, pneumothorax and infection with his mother, Mi Porter, who wishes to proceed with placement of the central venous line. 2. Hypertension. Blood pressure is stable. We will continue losartan 50 mg daily. Given his clinical presentation and comorbid conditions, admission to the hospital is absolutely necessary. He is at risk for adverse outcome such as sudden if we attempt to treat him as an outpatient. I anticipate he will be in the hospital for at least 2 midnights and I will therefore place him in inpatient status. I will use intermittent pneumatic compression hose for DVT prophylaxis and hold medicines like Lovenox given his history of a hemorrhagic stroke. cc: Blanche Gee MD
--- NOTE | 2019-03-13 20:31 | Diag Imaging Result Doc PS360 ---
EXAM: CHEST-PORTABLE HISTORY: ventilator patient TECHNIQUE: Single view COMPARISON: 5:20 PM FINDINGS: No change in the appearance of the chest. Stable right jugular line, endotracheal tube, and nasogastric tube. IMPRESSION: No change Electronically signed by Brian Butcher 03/13/2019 8:29 PM
[2019-03-13] MEDS ORDERED: RITALIN PO SCH (21:00)
[2019-03-13 21:41] LABS: ALLEN TEST YES; BLOOD TYPE ARTERIAL; HCO3-(ACT) 25.7 mmoll (20.0-26.0); METHB 1.5 % (0.0-1.5); O2(CT) 19.4 mL/dL (15.0-23.0); O2HB 95.9 % (95.0-99.0); PCO2(98.6) 45 mmHg (35-45); PO2(98.6) 110 mmHg (60-100); SAMPLE BLOOD; SAO2 98.6 % (95.0-100.0); SRATE 14 BPM; THB 14.3 g/dL (11.5-17.4); TVOL 500 mL; pH(98.6) 7.38 (7.35-7.45)
[2019-03-13 21:42] LABS: MODALITY VENTILATOR
[2019-03-13 21:43] LABS: AGAP 11; BUN 9 mg/dL (8-22); CHLORIDE 97 mmol/L (98-107); COSMO 264; CREATININE 0.7 mg/dL (0.7-1.2); ESTIMATED GFR > 60; GLUCOSE 112 mg/dL (70-104); POTASSIUM 4.1 mmol/L (3.5-5.1); SODIUM 132 mmol/L (136-145); TCO2 24 mmol/L (25-35)
[2019-03-13 22:27] LABS: URINE SOURCE CATH
[2019-03-13] MEDS ORDERED: SODIUM CHLORIDE 0.9% INJ SCH (22:30)
[2019-03-13 22:35] LABS: BILIRUBIN URINE NEGATIVE (NEGATIVE); BLOOD URINE MODERATE (NEGATIVE); COLOR ORANGE; GLUCOSE URINE NEGATIVE (NEGATIVE); KETONE URINE NEGATIVE (NEGATIVE); LEUKOCYTES URINE NEGATIVE (NEGATIVE); NITRITE URINE NEGATIVE (NEGATIVE); PROTEIN URINE TRACE mg/dL (NEGATIVE); SP GRAVITY URINE 1.021; TURBIDITY URINE TURBID (CLEAR); UR EPITHELIAL CELLS <10 /HPF (<10); URINE BACTERIA NEGATIVE /HPF; URINE RBC TNTC /HPF (<10); URINE WBC <10 /HPF (<10); UROBILINOGEN URINE NORMAL (NORMAL)
[2019-03-13] MEDS: KLOR-CON PO SCH (22:37)
[2019-03-13] MEDS: ASPIRIN PO SCH (22:38)
[2019-03-13] MEDS: VIMPAT PO SCH (22:38)
[2019-03-13] MEDS: ZYLOPRIM PO SCH (22:39)
[2019-03-13 23:00] LABS: URINE CASTS NONE SEEN; URINE CRYSTALS NONE SEEN; URINE SMALL ROUND CELLS NONE SEEN; URINE YEAST PRESENT
[2019-03-13 23:49] LABS: UR AMPHETAMINES QUAL NONE DETECTED (NONE DETECT); UR BARBITUATES QUAL NONE DETECTED (NONE DETECT); UR BENZODIAZEPIN QUAL NONE DETECTED (NONE DETECT); UR CANNABINOIDS QUAL NONE DETECTED (NONE DETECT); UR COCAINE QUAL NONE DETECTED (NONE DETECT); UR METHADONE QUAL NONE DETECTED (NONE DETECT); UR OPIATES QUAL NONE DETECTED (NONE DETECT); UR OXYCODONE QUAL NONE DETECTED (NONE DETECT); UR PCP QUAL NONE DETECTED (NONE DETECT)
--- NOTE | 2019-03-14 00:21 | OPERATIVE NOTE ---
PROCEDURE DATE: 03/13/2019 PREOPERATIVE DIAGNOSIS: Phlebosclerosis status post status epilepticus. POSTOPERATIVE DIAGNOSIS: Phlebosclerosis status post status epilepticus. PROCEDURE PERFORMED: Ultrasound-guided right common femoral central line placement. SURGEON: Royer Burciaga MD. POLICE LIEUTENANT: None. ANESTHESIA: Local administered by the surgeon. FINDINGS: Wire seen passing going into this common femoral vein on ultrasound, nonpulsatile blood noted on puncture. COMPLICATIONS: None. ESTIMATED BLOOD LOSS: 10 mL. BRIEF HISTORY: This is a A 44-year-old gentleman who came in with status epilepticus. He had poor vein selection and needs a central line. The risks, benefits and alternatives were discussed with the family and all questions answered. DESCRIPTION OF PROCEDURE: After informed consent was obtained the patient remained in the trauma [place]. His right groin was prepped and draped in sterile fashion. After a time-out we looked with the ultrasound, I found the common femoral vein. I used a local anesthetic to anesthetize the skin. Under ultrasound guidance I was able cannulate the common femoral vein. It was nonpulsatile blood, passed a wire easily. Using the Seldinger technique I dilated up the tract, confirmed that the wire was going in the common femoral vein by ultrasound, then placed a central line using the Seldinger technique. All ports aspirated and flushed easily. We secured it in place and placed a sterile dressing. The patient tolerated the procedure well and remains critical. cc: MD Blanche Saez MD
[2019-03-14] MEDS: D5 NS 1,000 ML IV SCH ×4 (00:36→21:41)
[2019-03-14] MEDS: DIPRIVAN 1% 1,000 MG/100 ML BOTTLE IV SCH ×3 (00:41→09:21)
[2019-03-14] MEDS: PROTONIX IV SCH ×2 (00:47→21:41)
[2019-03-14] MEDS: PATIENT'S OWN MED PO SCH ×3 (02:09→20:22)
--- NOTE | 2019-03-14 02:28 | PULMONOLOGY CONSULTATION ---
DATE: 03/13/2019 REQUESTING CLINICIAN: Dr. Thierry Gee. REASON FOR CONSULTATION: Respiratory failure. HISTORY OF PRESENT ILLNESS: Mr. Porter is a 48-year-old white male with a history of an astrocytoma diagnosed at the age of 11 which required multiple surgeries and radiation therapy. The patient developed an aneurysm in 2011 which resulted in extensive bleeding and significant encephalomalacia in the left hemisphere. The patient has subsequently developed a right hemiparesis, aphasia, and seizure disorder. He has previously been admitted to the hospital with status epilepticus. The patient was shopping with his mother today when he developed a continuous tonic-clonic seizure. The patient required intubation and initiation of ventilation to protect his airway upon arrival to the ICU. He appears to have been seizure-free since that time. He has been transferred to the intensive care unit. PAST MEDICAL HISTORY: 1. Multiple surgeries and aneurysm as per above with seizures and chronic aphasia. 2. History of seizures, followed by Neurology in [place]. 3. Gastroesophageal reflux disease. 4. Hypertension. 5. Depression. 6. History of ventriculoperitoneal shunt placement. SOCIAL HISTORY: The patient lives with his mother. No alcohol or tobacco listed. FAMILY HISTORY: Positive for heart disease, breast cancer, and hypertension. REVIEW OF SYSTEMS: Cannot be obtained. PHYSICAL EXAMINATION: General: Reveals a well-developed, well-nourished male on mechanical ventilation. Vital Signs: BP 106/78, heart rate 86, respiratory rate 16, oxygen saturation 98%. HEENT: He has mild anisocoria with the right pupil slightly larger than the left. Oropharynx reveals some residual blood in the mouth possibly related to a lingual injury. Neck: Supple. Chest: Reveals good air entry bilaterally without wheezing or rhonchi. Cardiac: Regular rate. Normal S1. Normal S2. Abdomen: Soft. Extremities: Without edema. LABORATORIES: Chest x-ray reveals endotracheal tube in good position. Shallow lung yuan with mild increased markings likely due to poor inspiration. Nasogastric tube in good position. Arterial blood gas at 21:33 reveals a pH 7.38, pCO2 of 45, PO2 of 110. Lactate seen at 2 o'clock this afternoon has resolved. Sodium 132, potassium 4.1, chloride 97, bicarbonate 24, BUN 9, creatinine 0.7, glucose 112. IMPRESSION: A 48-year-old with: 1. Status epilepticus. 2. Acute hypoxemic respiratory failure. 3. Altered mental status. RECOMMENDATIONS: 1. Continue intubation and mechanical ventilation through the evening. He will be placed on a spontaneous breathing trial tomorrow to see if he can be extubated. 2. Continue propofol for sedation. 3. Consider discontinuing Ritalin given his seizure disorder. 4. Initiate IV fluids to prevent dehydration and kidney injury. 5. Initiate gastric acid suppression. 6. Spontaneous breathing trial tomorrow as outlined above. Time spent in critical care management: 1 hour cc: MD Blanche Lazaro MD MTDD
[2019-03-14 04:42] LABS: ALLEN TEST YES; BE 0.5 mmoll (-3.0-3.0); BLOOD TYPE ARTERIAL; HCO3-(ACT) 25.3 mmoll (20.0-26.0); METHB 1.1 % (0.0-1.5); O2(CT) 18.5 mL/dL (15.0-23.0); O2HB 96.9 % (95.0-99.0); PCO2(98.6) 41 mmHg (35-45); PO2(98.6) 130 mmHg (60-100); SAMPLE BLOOD; SAO2 99.2 % (95.0-100.0); SRATE 14 BPM; THB 13.4 g/dL (11.5-17.4); TVOL 500 mL
[2019-03-14 04:43] LABS: MODALITY VENTILATOR
--- NOTE | 2019-03-14 08:05 | Diag Imaging Result Doc PS360 ---
EXAM: CHEST-PORTABLE INDICATION: Patient intubated TECHNIQUE: One view COMPARISON: 03/13/2019 FINDINGS: Support tubes and lines are in stable positions. Inspiration is somewhat suboptimal but stable. There is mild linear density at the lower lung zones, particularly on the left, that has developed likely representing platelike atelectasis. No other new consolidation is identified. Cardiac silhouette is stable. IMPRESSION: Development of mild subsegmental atelectasis at the lung bases. Stable chest, otherwise. Electronically signed by Michael Chaudhary 03/14/2019 8:02 AM
[2019-03-14] MEDS: NEURONTIN PO SCH ×3 (09:19→17:19)
[2019-03-14] MEDS: KLOR-CON PO SCH ×2 (09:19→20:21)
[2019-03-14] MEDS: COZAAR PO SCH (09:19)
[2019-03-14] MEDS: VIMPAT PO SCH ×2 (09:20→20:21)
[2019-03-14] MEDS: PROZAC PO SCH (09:20)
[2019-03-14 10:25] LABS: HEMATOCRIT 41.6 % (42.0-52.0); HEMOGLOBIN 13.3 g/dL (14.0-18.0); MCH 29.1 PG (27-31); MPV 9.9 FL (7.4-10.4); RBC 4.57 XMIL (4.7-6.1); RDW 13.2 % (11.5-14.5); WBC 8.33 X1000 (4.8-10.8)
[2019-03-14 10:36] LABS: AGAP 10; BUN 7 mg/dL (8-22); CALCIUM 8.3 mg/dL (8.8-10.2); CHLORIDE 105 mmol/L (98-107); COSMO 276; CREATININE 0.6 mg/dL (0.7-1.2); ESTIMATED GFR > 60; GLUCOSE 116 mg/dL (70-104); POTASSIUM 4.1 mmol/L (3.5-5.1); SODIUM 139 mmol/L (136-145); TCO2 24 mmol/L (25-35)
[2019-03-14 10:55] LABS: ALLEN TEST NO; BE -0.6 mmoll (-3.0-3.0); BLOOD TYPE ARTERIAL; HCO3-(ACT) 24.4 mmoll (20.0-26.0); METHB 1.1 % (0.0-1.5); O2(CT) 18.1 mL/dL (15.0-23.0); O2HB 95.1 % (95.0-99.0); PCO2(98.6) 43 mmHg (35-45); PO2(98.6) 81 mmHg (60-100); SAMPLE BLOOD; SAO2 97.4 % (95.0-100.0); THB 13.5 g/dL (11.5-17.4); pH(98.6) 7.37 (7.35-7.45)
[2019-03-14 10:56] LABS: MODALITY VENTILATOR
[2019-03-14] MEDS ORDERED: ATIVAN IV PRN (12:07)
--- NOTE | 2019-03-14 15:33 | PROGRESS NOTE ---
DATE: 03/14/2019 SUBJECTIVE: Patient's chart was reviewed. In summary, the patient was admitted yesterday with status epilepticus. This occurred while he was with his mother while shopping for groceries. EMS was contacted. He was intubated in transit to [facility] for airway protection. While in the emergency department, multiple doses of IV Ativan and IV Keppra were provided. Per report, seizure lasted approximately 45 minutes. Overnight, patient appears to have done reasonably well on the ventilator. He remains sedated with propofol. This morning, upon my arrival, patient's mother was at bedside. She has noted no significant concerns today. She described a long history of neurologic symptoms starting with a midline astrocytoma as a child and subsequently experiencing an intracranial aneurysm complicated by hemorrhagic stroke several years ago. He is followed at [facility] for his underlying seizures. She has been told that these likely will progress. OBJECTIVE: Vital signs: T-max 99.3 degrees, heart rate 72 to 87, respirations 15 to 19, blood pressure 101 to 134 over 67 to 88. General: Sedated on the ventilator. Cardiovascular: Regular rate and rhythm. No significant murmurs, rubs, or gallops. Pulmonary: Clear to auscultation anteriorly. Abdomen: Soft, nontender, nondistended. Positive bowel sounds. Extremities: No significant clubbing, cyanosis, or edema. The patient does have apparent neurological deficits to the right upper and right lower extremity. Dermatologic: Evaluation reveals no evidence of rash. LABORATORY DATA: White blood cell count 8.33, hemoglobin 13.3, hematocrit 41.6, platelet count 251,000. Sodium 139, potassium 4.1, chloride 105, bicarb 24, BUN 7, creatinine 0.6, glucose 116, calcium 8.3, magnesium 2.3. CK total is 271. pH 7.37, pCO2 is 43, PO2 is 81, bicarbonate 24.4 IMAGING: Chest x-ray reveals development of mild subsegmental atelectasis at the lung bases. Stable chest, otherwise. ASSESSMENT AND PLAN: 1. Status epilepticus - patient has achieved improvement with IV Ativan followed by IV Keppra. I discussed this in detail with patient's mother. He currently is being treated with Aptiom, gabapentin and Vimpat per his neurologist at [facility]. I attempted to contact his neurologist, Dr. De Souza, but he was not industrial organizational psychologist. Patient's mother would prefer to continue those current medications as he has had significant difficulty with medications in the past. For now, we will continue each of these. We will have Ativan available if necessary. We will defer further management to Dr. Gee/Dr. De Souza on Saturday. 2. Hypertension - the patient's blood pressure is stable with losartan therapy. We will continue this. 3. Respiratory failure/respiratory compromise - patient was intubated secondary to airway protection. At this point, he appears to be tolerating this well. He likely will be extubated either today or tomorrow. 4. Attention deficit disorder - he is currently being treated with Ritalin. At this point, the risk of continuing outweighs the benefits as this can promote seizure activity. We will hold further dosing of Ritalin. 5. Depression/anxiety - we will continue fluoxetine therapy. 6. Disposition. At this point, patient continues to require [facility] care in a hospital setting. We will plan discharge home once appropriate. cc: MD Blanche English MD
[2019-03-14] MEDS: ZYLOPRIM PO SCH (20:21)
[2019-03-14] MEDS: ASPIRIN PO SCH (20:21)
--- NOTE | 2019-03-14 22:48 | PULMONOLOGY PROGRESS NOTE ---
DATE: 03/14/2019 SUBJECTIVE: The patient is currently on a sedation vacation. He is opening his eyes and motioning to his mother. OBJECTIVE: Vital Signs: The patient has been afebrile for the last 24 hours. Blood pressure 113/81, heart rate 87, respiratory rate 17, oxygen saturation 99%. HEENT: Pupils are equal and reactive. Oropharynx appears clear without active bleeding. Neck: Supple. Chest: Reveals occasional rhonchi bilaterally. Cardiac: S1-S2. Abdomen: Soft with positive bowel sounds. Extremities: Without edema. LABORATORIES: Sodium 139, potassium 4.1, chloride 105, bicarbonate 24, BUN 7, creatinine 0.6, glucose 116. White blood count 8.33, hemoglobin 13.3, platelet count 251,000. Arterial blood gas reveals a pH 7.40, pCO2 of 41, PO2 of 130. Chest x-ray reveals mild atelectasis in the lung bases. IMPRESSION: A 48-year-old with: 1. Status epilepticus. 2. Acute hypoxemic respiratory failure. 3. Altered mental status. PLAN: 1. Initiate spontaneous breathing trial with discontinuation of propofol. 2. Continue IV fluids for mild rhabdomyolysis. 3. Continue gastric acid suppression. 4. Anticipate extubation with reinitiation of oral seizure medicines as soon as possible. Time spent Critical care management: 40 minutes cc: MD Blanche Lazaro MD MTDD
[2019-03-15 06:18] LABS: BASO# 0.02 X1000 (0.0-0.2); BASO% 0.2 % (0.0-0.8); EOS# 0.11 X1000 (0.0-0.7); EOS% 1.3 % (0.0-10.0); HEMATOCRIT 39.6 % (42.0-52.0); HEMOGLOBIN 12.3 g/dL (14.0-18.0); IMM GRAN# 0.02 X1000 (0.0-0.04); IMM GRAN% 0.2 % (0.0-0.5); LYMPH# 1.52 X1000 (1.2-3.4); LYMPH% 17.3 % (20.5-51.1); MCH 29.1 PG (27-31); MCHC 31.1 g/dL (33-37); MCV 93.6 FL (81-99); MONO# 0.73 X1000 (0.11-0.59); MONO% 8.3 % (1.7-9.3); MPV 10.3 FL (7.4-10.4); NEUT% 72.7 % (42.2-75.2); PLT 272 X1000 (130-400); RBC 4.23 XMIL (4.7-6.1); RDW 13.4 % (11.5-14.5)
[2019-03-15] MEDS: D5 NS 1,000 ML IV SCH (06:24)
[2019-03-15 06:48] LABS: AGAP 10; ALB/GLOB RATIO 1.5; ALBUMIN 3.3 g/dL (3.5-5.0); ALKALINE PHOSPHATASE 48 U/L (32-122); BUN 7 mg/dL (8-22); CALCIUM 7.9 mg/dL (8.8-10.2); CHLORIDE 108 mmol/L (98-107); COSMO 283; CREATININE 0.8 mg/dL (0.7-1.2); ESTIMATED GFR > 60; GLUCOSE 92 mg/dL (70-104); GOT 17 U/L (10-34); GPT 26 U/L (10-44); POTASSIUM 3.9 mmol/L (3.5-5.1); SODIUM 143 mmol/L (136-145); TCO2 25 mmol/L (25-35); TOTAL BILIRUBIN 0.37 mg/dL (0.20-1.00); TOTAL PROTEIN 5.5 g/dL (6.3-8.3)
[2019-03-15 06:52] LABS: MAGNESIUM 2.2 mg/dL (1.5-2.7); PHOSPHORUS 2.1 mg/dL (2.7-4.5)
--- NOTE | 2019-03-15 07:30 | Diag Imaging Result Doc PS360 ---
EXAM: CHEST-PORTABLE HISTORY: abnormal exam TECHNIQUE: Single view COMPARISON: 03/14/2019 FINDINGS: The endotracheal and nasogastric tubes have been removed. No change in the right jugular line. Poor inspiratory effort. Heart clearing of the infiltrates or atelectasis in the left base. No cardiomegaly. No pulmonary edema. No pleural effusions identified. IMPRESSION: Interval improvement Electronically signed by Brian Butcher 03/15/2019 7:27 AM
[2019-03-15] MEDS: KLOR-CON PO SCH (08:36)
[2019-03-15] MEDS: VIMPAT PO SCH ×2 (08:37→21:13)
[2019-03-15] MEDS: PROZAC PO SCH (08:37)
[2019-03-15] MEDS: PATIENT'S OWN MED PO SCH ×2 (08:37→21:13)
[2019-03-15] MEDS: NEURONTIN PO SCH ×3 (08:37→16:56)
[2019-03-15] MEDS: COZAAR PO SCH (08:37)
[2019-03-15] MEDS ORDERED: D5 NS 1,000 ML IV SCH (09:15)
--- NOTE | 2019-03-15 12:44 | PROGRESS NOTE ---
DATE: 03/15/2019 SUBJECTIVE: Over the course of the last 24 hours, the patient has demonstrated a considerable improvement. Yesterday afternoon, the patient was extubated. He tolerated this quite well. Overnight, the patient rested well on his home CPAP. Today, the patient's mother states that he is approaching his baseline. Historically, with seizure activity, he has several days of hesitancy with speaking and mild abnormalities with word-finding. Symptoms today are very consistent. Thus far, his p.o. intake is marginal. However, he is demonstrating no evidence of aspiration. He denies fevers, chills, nausea, vomiting, shortness of breath, or chest discomfort. OBJECTIVE: T-max 99.3 degrees, heart rate 77-90, respirations 15-18, blood pressure 127-140/90- 100. General: No acute distress. Cardiovascular: Regular rate and rhythm. No significant murmurs, rubs, or gallops. Pulmonary: Clear to auscultation bilaterally. Abdomen: Soft, nontender, nondistended. Positive bowel sounds. Extremities: No significant clubbing, cyanosis, or edema. Dermatologic: Evaluation reveals no evidence of rash. Neurologic: Examination does reveal a patient that is appropriate but slow to respond. Right upper and lower extremity deficits are similar to previous, per mother. Laboratory Data: White blood cell count 8.80, hemoglobin 12.3, hematocrit 39.6, platelet count is 272,000. Sodium 143, potassium 3.9, chloride 108, bicarb 25, BUN 7, creatinine 0.8, glucose 92, calcium 9.7, magnesium 2.2, phosphorus 2.1. Total bilirubin 0.37, total protein 5.5, albumin 3.3, alkaline phosphatase 48, AST 17, ALT 26. ASSESSMENT AND PLAN: 1. Status epilepticus-as described yesterday, he was treated with multiple doses of intravenous Ativan followed by intravenous Keppra. I attempted to contact his primary neurologist, Dr. De Souza, at [facility] yesterday. Unfortunately, he was not recreation facility manager. For now, we will resume his home medications. We will continue Ativan if necessary. We will monitor the patient on telemetry. We will defer further neurologic consultation or discussion with Dr. De Souza to Dr. Gee tomorrow. 2. Hypertension-the patient's blood pressure is slightly elevated. We will continue losartan. We will hold off on resuming hydrochlorothiazide. We will continue to hold potassium while hydrochlorothiazide is being held as well. 3. Respiratory failure/respiratory compromise-the patient was intubated secondary to airway protection. I do not appreciate any worrisome findings on examination today. He has been extubated with success. We will continue to follow this and encourage aspiration precautions. 4. Attention deficit disorder-the patient is being treated with Ritalin as an outpatient. As this may promote seizure activity, this has been held. We will defer further consideration to Dr. Gee and Dr. De Souza. 5. Depression/anxiety-we will continue patient on fluoxetine therapy. 6. Weakness-we will consult physical therapy. We will encourage out of bed for all meals. 7. Prophylaxis-with a history of an intracranial bleed, anticoagulation has been held. He is treated with sequential compression devices. I suspect with further increase in activity, this will also decrease his risk. 8. Disposition-at this point, the patient continues to require skilled care in a hospital setting. We will plan to transition the patient from the intensive care unit to the [facility] today. cc: MD Blanche English MD
--- NOTE | 2019-03-15 16:58 | PULMONOLOGY PROGRESS NOTE ---
DATE: 03/15/2019 SUBJECTIVE: The patient is awake, alert, and conversant. He was asking for coffee and food earlier this morning. He is without specific complaints. OBJECTIVE: Vital Signs: Maximum temperature in the last 24 hours is 99.1 degrees, blood pressure 142/98, heart rate 80, respiratory rate 15, oxygen saturation 95%. HEENT: Pupils are equal and reactive. Oropharynx is clear. Neck: Supple. Chest: Reveals good air entry bilaterally without wheezing or rhonchi. Cardiac: S1-S2. Abdomen: Obese and soft. Extremities: Reveal trace edema. LABORATORIES: Chest x-ray reveals shallow inspiration, no evidence of acute disease. White blood count 8.80, hemoglobin 12.3, platelet count 272,000. IMPRESSION: 48-year-old with 1. Status epilepticus. 2. Acute hypoxemic respiratory failure. 3. Altered mental status. DISCUSSION: 48-year-old problems outlined above. He continues to rapidly improve. He is doing well off mechanical ventilation. PLAN: 1. Discontinue IV fluids. 2. Advance diet as tolerated. 3. Anticipate transferring out of the ICU later today. cc: MD Blanche Lazaro MD
[2019-03-15] MEDS: ZYLOPRIM PO SCH (21:13)
[2019-03-15] MEDS: ASPIRIN PO SCH (21:13)
[2019-03-16] MEDS: PREVACID SOLUTAB PO SCH (08:12)
[2019-03-16] MEDS: PROZAC PO SCH (08:12)
[2019-03-16] MEDS: COZAAR PO SCH ×2 (08:13→20:21)
[2019-03-16] MEDS: PATIENT'S OWN MED PO SCH ×2 (08:13→20:21)
[2019-03-16] MEDS: NEURONTIN PO SCH ×3 (08:13→20:21)
--- NOTE | 2019-03-16 08:20 | EKG Report ---
Test Performed on : 03/13/2019 4:38:55 PM Test Reason : ED. NO EKG ORDER FOR MUSE Blood Pressure : / mmHG Vent. Rate : 121 BPM Atrial Rate : 121 BPM P-R Int : 150 ms QRS Dur : 108 ms QT Int : 326 ms P-R-T Axes : 063 074 080 degrees QTc Int : 462 ms Sinus tachycardia. with premature atrial complexes. Nonspecific ST abnormality Abnormal ECG No previous ECGs available Unconfirmed Result
[2019-03-16] MEDS: VIMPAT PO SCH ×2 (08:50→20:20)
[2019-03-16] MEDS ORDERED: RITALIN PO SCH ×2 (09:00)
[2019-03-16 09:29] LABS: URINE SOURCE CATH
[2019-03-16 10:05] LABS: BILIRUBIN URINE NEGATIVE (NEGATIVE); BLOOD URINE LARGE (NEGATIVE); COLOR BROWN; GLUCOSE URINE NEGATIVE (NEGATIVE); KETONE URINE NEGATIVE (NEGATIVE); LEUKOCYTES URINE SMALL (NEGATIVE); NITRITE URINE NEGATIVE (NEGATIVE); PROTEIN URINE 100 mg/dL (NEGATIVE); SP GRAVITY URINE 1.019; TURBIDITY URINE TURBID (CLEAR); UROBILINOGEN URINE 3 mg/dL (NORMAL)
[2019-03-16 10:20] LABS: URINE RBC TNTC /HPF (<10)
[2019-03-16] MEDS ORDERED: NEURONTIN PO SCH (13:00)
[2019-03-16] MEDS: RITALIN PO SCH (13:15)
--- NOTE | 2019-03-16 16:06 | PROGRESS NOTE ---
DATE: 03/16/2019 Mr. Porter was admitted to [facility] with status epilepticus. He was extubated on Saturday. He has had no further seizure activity. He is awake and easily arousable. He still has some mild residual expressive aphasia which is common following his previous seizures. I spoke to his neurologist at [facility] who agreed that it would be worthwhile to increase the gabapentin to 600 mg t.i.d. Blood pressure is fluctuating. He denies any chest pain, palpitations, or anginal equivalents. Temperature 98.6 degrees, pulse 88, respirations 14, BP 141/98.CV: Regular rate and rhythm. Lungs: Clear. Abdomen: Soft, nontender with active bowel sounds. ASSESSMENT AND PLAN: 1. Hypertension. Blood pressure is a little bit too high. I will increase the losartan to 50 mg b.i.d. 2. Grand mal seizures with status epilepticus. He has had no further seizure activity since admission. He is back to his baseline neurologically. He remains seizure-free. We will continue Aptiom 800 mg b.i.d., Vimpat 200 mg b.i.d. and increase the gabapentin to 600 mg t.i.d. cc: Blanche Gee MD
--- NOTE | 2019-03-16 20:14 | PULMONOLOGY PROGRESS NOTE ---
DATE: 03/16/2019 SUBJECTIVE: The patient is awake, alert, and conversant. He has not had additional seizures. He has had his [place] catheter removed. He is without specific complaints. OBJECTIVE: Vital Signs: Blood pressure 141/98, heart rate 78, respiratory rate 14, oxygen saturation 98% on room air. HEENT: Pupils are equal and reactive. Oropharynx appears clear. Neck: Supple. Chest: Reveals good air entry bilaterally without wheezing or rhonchi. Cardiac Exam: S1, S2. Abdomen: Soft. Extremities: Without edema. IMPRESSION: 48-year-old with 1. Status epilepticus. 2. Acute hypoxemic respiratory failure on presentation. 3. Altered mental status. DISCUSSION: A 48-year-old with problems outlined above. He has had no additional seizures. His hypoxemic respiratory failure has resolved. He is returning to his baseline mentation. PLAN: 1. Continue current treatment per Dr. Thierry Gee. 2. No additional recommendations. We will sign off his case. Please call with questions or need for assistance. cc: MD Blanche Lazaro MD
[2019-03-16] MEDS: ASPIRIN PO SCH (20:21)
[2019-03-16] MEDS: ZYLOPRIM PO SCH (20:21)
[2019-03-17] MEDS: RITALIN PO SCH (06:07)
[2019-03-17 07:41] VITALS: BP 140/86
[2019-03-17] MEDS: COZAAR PO SCH (08:23)
[2019-03-17] MEDS: PREVACID SOLUTAB PO SCH (08:24)
[2019-03-17] MEDS: PATIENT'S OWN MED PO SCH (08:24)
[2019-03-17] MEDS: NEURONTIN PO SCH (08:24)
[2019-03-17] MEDS: PROZAC PO SCH (08:24)
[2019-03-17] MEDS: VIMPAT PO SCH (08:32)
[2019-03-17] MEDS ORDERED: COZAAR PO SCH (09:00)
--- NOTE | 2019-03-19 14:23 | DISCHARGE SUMMARY ---
ADMISSION DATE: 03/13/2019 DISCHARGE DATE: 03/17/2019 DISCHARGE DIAGNOSES: 1. Acute respiratory failure requiring mechanical ventilation, grand mal seizures status epilepticus. 2. History of grand mal seizures. 3. Essential hypertension. 4. Gastroesophageal reflux disease. 5. Depression. 6. Attention deficit disorder. DISCHARGE INSTRUCTIONS: 1. Return to clinic in 1 week to see me, Dr. Thierry Gee, for transition of care visit. 2. Activity as tolerated. 3. Healthy heart diet. MEDICATIONS: Neurontin 600 mg t.i.d., losartan 100 mg daily, Ritalin 20 mg b.i.d., allopurinol 300 mg daily, aspirin 325 mg daily, fluoxetine 80 mg daily, hydrochlorothiazide 25 mg daily, Aptiom 800 mg b.i.d., Prevacid 30 mg daily, Vimpat 200 mg b.i.d., Urocit-K 10 mEq b.i.d. DISCHARGE PHYSICAL EXAMINATION: General: This is a well-developed, well-nourished 48-year-old gentleman in no apparent distress. Vital signs: He is afebrile. Vital signs are stable. Cardiovascular: Regular rate and rhythm. Lungs: Clear. Abdomen: Soft, nontender with active bowel sounds. Neurologic: Mr. Michael Porter has an extensive neurologic history. 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 HOSPITAL COURSE: He presented to [facility] in status epilepticus. He was intubated in the field by EMT personnel. In the ER, he was given multiple doses of Ativan and was loaded with 2 g of Keppra with resolution of the seizure activity. His neurologist in [place] had recently added gabapentin 300 mg t.i.d. In order to maintain consistent IV access, I consulted Dr. Burciaga who performed an ultrasound-guided right common femoral central line placement. No complications occurred. Dr. Skinner was consulted to manage the ventilator. The patient was started on a spontaneous breathing trial with discontinuation of propofol and was successfully extubated on 03/14/2019. Over the next day, he began to demonstrate significant improvement. He was awake and easily arousable. He was oriented to name, place, and time. He still had some hesitancy with speaking and word finding which are common after seizures. He was transition back to his oral antiseizure medications, including Aptiom 800 mg b.i.d., Vimpat 200 mg t.i.d., and after discussions with Dr. De Souza who is his neurologist in [place], we increased the dosage of gabapentin to 600 mg t.i.d. He remained seizure free. He has a longstanding history of hypertension. His blood pressure fluctuated and we did increase the dosage of the losartan to 100 mg daily with stabilization of his blood pressure. He has a longstanding history of depression. He continues to do well clinically on fluoxetine therapy. Having reached maximum hospital benefit, the patient was discharged in stable condition. cc: Blanche Gee MD
== END 2019-03-17 10:45 | disposition home or self-care (01) | DRG 100 ==
LOC: SUPCPDRO → ED 16:22 → ICU 19:38 → 2N 03-15 15:37
PROVIDERS: ADMIT Internal Medicine; ATTEND Internal Medicine